=== PATIENT | male | born 1955 | race Caucasian/White ===

== ENCOUNTER 2025-01-12 10:56 | Day surgery (SDC) | payer OTHER, MEDICARE ==
[~2025-01-12] VITALS: Ht 182.9 cm; Wt 112.9 kg
[~2025-01-12 10:56] MED LIST: ACET-907 PO; CYCLOPENTOLATE 1% OPHTH SOLN 2 ML BTL OS SCH; FLURBIPROFEN 0.03% OPHTH SOLN 2.5 ML OS SCH; IBUP-1114 PO; LR 1,000 ML IV SCH; PHENYLEPHRINE 2.5% OPHTH SOL 2ML OS SCH; TETRACAINE 0.5% OPHTH SOLN 4ML OS SCH
[2025-01-12] MEDS ORDERED: MIDAZOLAM INJ 2 MG/2 ML VIAL As Ordered ONE (14:09)
[2025-01-12] MEDS: CEFUROXIME 1 MG/0.1 ML INTRACAMERAL INJ As Ordered ONE (14:41)
[2025-01-12] MEDS: LIDOCAINE 1% SDV 5 ML VIAL As Ordered ONE (14:41)
[2025-01-12 15:04] VITALS: BP 117/61; TEMP 97.6; O2SAT 95
== END 2025-01-12 15:11 | disposition home or self-care (01) ==
LOC: M SDC 10:56
PROVIDERS: ATTEND Ophthalmology
DX: H25.9 Unspecified age-related cataract (principal); G47.30 Sleep apnea, unspecified; Z87.891 Personal history of nicotine dependence; Z91.048 Other nonmedicinal substance allergy status
CPT/HCPCS: 66984; J0697; J2250; J3010; V2632